=== PATIENT | male | born 1985 | race Caucasian/White ===

== ENCOUNTER 2025-06-23 14:49 | Emergency (ER) | payer OTHER ==
[~2025-06-23] VITALS: Wt 68.0 kg
[2025-06-23] MEDS ORDERED: HYDROCODONE-AC1 EAC1 PO (17:14)
[2025-06-23] MEDS ORDERED: Acetaminophen/Hydrocodone 5 MG/325 MG TABLET PO ONE (17:15)
== END 2025-06-23 17:33 | disposition home or self-care (01) ==
LOC: ED 14:49
DX: S82.61XA Displaced fracture of lateral malleolus of right fibula, initial encounter for closed fracture (principal); W19.XXXA Unspecified fall, initial encounter; Y93.89 Activity, other specified; Y92.89 Other specified places as the place of occurrence of the external cause; Y99.8 Other external cause status